=== PATIENT | male | born 1950 | race Caucasian/White ===

== ENCOUNTER 2022-12-31 07:37 | Day surgery (SDC) | payer OTHER, MEDICARE ==
[2022-12-31] VITALS (13 sets, daily range): BP systolic 134–164; BP diastolic 83–100; PULSE 89–99; RESP 15–18; TEMP 98.3; O2SAT 94–97
[~2022-12-31] VITALS: Ht 182.9 cm; Wt 67.6 kg
[2022-12-31] MEDS ORDERED: ASPI-974 PO (08:02)
[2022-12-31] MEDS ORDERED: ATOR80TA13 PO (08:02)
[2022-12-31] MEDS ORDERED: ACET-1025 PO (08:02)
[2022-12-31] MEDS ORDERED: MELA5CAP PO (08:02)
[2022-12-31] MEDS ORDERED: KIRKLAND SLEEP AID PO (08:02)
[2022-12-31] MEDS ORDERED: normal saline 1000ml 1,000 ML IV PRN (08:25)
[2022-12-31 08:30] LABS: BASOPHILS # (AUTO) 0.1 X10'3 (0-0.2); BASOPHILS % (AUTO) 0.6 % (0-1); EOSINOPHILS % (AUTO) 0.2 % (0-6); HEMATOCRIT 35.8 % (42.0-52.0); HEMOGLOBIN 11.7 g/dl (14.0-17.9); LYMPHOCYTES # (AUTO) 0.6 X10'3 (1.1-4.8); MEAN CORPUSCULAR HEMOGLOBIN 29.4 PG (27.0-31.0); MEAN CORPUSCULAR HGB CONC 32.6 g/dL (33.0-36.5); MEAN CORPUSCULAR VOLUME 90.2 FL (78-98); MEAN PLATELET VOLUME 7.7 FL (7.4-10.4); MONOCYTES # (AUTO) 1.1 X10'3 (0-0.9); MONOCYTES % (AUTO) 10.1 % (2-12); NEUTROPHILS # (AUTO) 9.5 X10'3 (1.8-7.7); NEUTROPHILS % (AUTO) 84.1 % (42-75); PLATELET COUNT 496 X10'3 (140-440); RED BLOOD COUNT 3.97 X10'6 (4.70-6.10); RED CELL DISTRIBUTION WIDTH 16.9 % (11.5-14.5); WHITE BLOOD COUNT 11.3 X10'3 (4.5-11.0)
[2022-12-31 08:40] LABS: PROTHROMBIN TIME 10.7 SECONDS (9.0-12.0)
[2022-12-31] MEDS ORDERED: LIDOcaine 1% 30ml preserv. free vial ONE (10:14)
[2022-12-31] MEDS ORDERED: fentaNYL/PF 50MCG/1 ML 2ML syringe ONE (10:16)
[2022-12-31] MEDS ORDERED: midazolam 1 mg/ML 2ml injection ONE (10:17)
[2022-12-31] MEDS ORDERED: gelatin sponge, absorbable (Gelfoam 12-7MM) sponge TP ONE (10:48)
[2022-12-31] MEDS ORDERED: HYDROcodone/acetaminophen 5mg/325mg tablet PO PRN ×2 (11:00)
[2022-12-31] MEDS ORDERED: acetaminophen 325mg tablet PO PRN (12:10)
== END 2022-12-31 15:00 | disposition home or self-care (01) ==
LOC: SSTAY O 07:37
PROVIDERS: ATTEND Radiology Vascular & Interventional Radiology
DX: K76.89 Other specified diseases of liver (principal); C78.7 Secondary malignant neoplasm of liver and intrahepatic bile duct; C78.00 Secondary malignant neoplasm of unspecified lung; C79.51 Secondary malignant neoplasm of bone; E66.9 Obesity, unspecified; Z68.20 Body mass index [BMI] 20.0-20.9, adult; Z88.5 Allergy status to narcotic agent; Z79.899 Other long term (current) drug therapy; Z79.82 Long term (current) use of aspirin; Z72.89 Other problems related to lifestyle
CPT/HCPCS: 36415; 47000; 76942; 85025; 85610; 99152; 99153; J2250; J3010; J3490; J7030; A4615; A4620